=== PATIENT | female | born 1975 | race Caucasian/White ===

== ENCOUNTER 2021-02-08 10:08 | Outpatient (CLI) | payer OTHER | END 2021-02-08 10:20 | disposition home or self-care (01) | LOC: SONOGRAMA 10:08 | PROVIDERS: ATTEND Surgery | DX: D24.2 Benign neoplasm of left breast (principal); N60.11 Diffuse cystic mastopathy of right breast; N60.12 Diffuse cystic mastopathy of left breast; R92.0 Mammographic microcalcification found on diagnostic imaging of breast ==

== ENCOUNTER → 2021-03-19 08:45 | Outpatient (CLI) | payer OTHER ==
[~2021-03-19 08:45] MED LIST: ALBUTERO IH; AZELASTINE137 MCG/0. IH; IBERSARTAN PO; SINGULAIR10 MG PO; SYMB IH; SYNTHROID50 MCG PO; VITAMIN C60 MG
== END | disposition home or self-care (01) ==
LOC: LAB 08:45
PROVIDERS: ATTEND Specialist
DX: D50.8 Other iron deficiency anemias (principal); E83.51 Hypocalcemia; N83.291 Other ovarian cyst, right side; N83.292 Other ovarian cyst, left side; D68.8 Other specified coagulation defects; N39.0 Urinary tract infection, site not specified; E03.8 Other specified hypothyroidism; Z01.810 Encounter for preprocedural cardiovascular examination

== ENCOUNTER 2021-04-19 07:22 | Day surgery (SDC) | payer OTHER | END 2021-04-19 14:30 | disposition home or self-care (01) | LOC: CIR.AMB 07:22 | PROVIDERS: ATTEND Specialist | DX: N84.0 Polyp of corpus uteri (principal); Z20.822 Contact with and (suspected) exposure to COVID-19 ==